=== PATIENT | male | born 1990 | race Caucasian/White ===

== ENCOUNTER → 2017-01-10 | Outpatient (CLI) | payer BC ==
--- NOTE | 2017-01-10 14:31 | DIAGNOSTIC IMAGING REPORT ---
RIGHT KNEE 2 VIEWS HISTORY: R KNEE PAIN Right COMPARISON: None. FINDINGS: There is no fracture or dislocation. Small knee effusion. Medial soft tissue swelling No radiopaque foreign bodies. IMPRESSION: Medial soft tissue swelling and a small knee effusion. Electronically signed by: Jaswinder Spicer M.D. 01/10/2017 2:30 PM Dictated Date/Time: 01/10/2017 2:28 PM
== END | disposition home or self-care (01) ==
LOC: C.RAD1850 14:20
PROVIDERS: ATTEND Family Medicine
DX: M25.561 Pain in right knee (principal)